=== PATIENT | female | born 1995 | race Hispanic/Latino ===

== ENCOUNTER 2020-11-11 22:13 | Emergency (ER) | payer SELFPAY ==
[2020-11-11] MEDS ORDERED: Sulfameth/Trimethoprim DS 800-160mg TAB ONE (22:48)
== END 2020-11-11 22:54 | disposition home or self-care (01) ==
LOC: NAV ERS 22:13
DX: N61.1 Abscess of the breast and nipple (principal); E11.65 Type 2 diabetes mellitus with hyperglycemia; R00.0 Tachycardia, unspecified
CPT/HCPCS: 36416; 87070; 87077; 87205; 99283